=== PATIENT | female | born 1940 | race American Indian/Alaskan Native ===

== ENCOUNTER → 2021-09-21 12:18 | Outpatient (CLI) | payer MEDICARE, OTHER, SELFPAY ==
--- NOTE | 2021-09-21 | DI.RAD.S_ITS ---
PROCEDURE: XR HIP W PEL IF DONE LT 2V INDICATIONS: Pain in right hip TECHNIQUE: AP pelvis with lateral view(s) of the left hip(s). COMPARISON: None. FINDINGS: Bones: No fractures or dislocations. Pelvic ring appears intact. No suspicious bony lesions. Mild periarticular osteophyte formation at the bilateral hip joints. Soft tissues: The visualized bowel gas pattern is normal. No suspicious soft tissue calcifications. IMPRESSION: Hip osteoarthritis. No acute fracture. No osseous lesion. If symptoms and/or clinical suspicion for pathology persist, further assessment with repeat, or advanced imaging (e.g., CT, MRI, or bone scan) may be helpful for further assessment. Dictated by: Chon Miner M.D. on 09/21/2021 at 16:29 Approved by: Chon Miner M.D. on 09/21/2021 at 16:30
--- NOTE | 2021-09-21 | DI.RAD.S_ITS ---
PROCEDURE: XR LUMBAR SPINE 2-3V INDICATIONS: Pain in right hip TECHNIQUE: 3 views of the lumbar spine were acquired. COMPARISON: None. FINDINGS: Bones: 5 [id number] vertebrae are present. There is loss of normal lumbar lordosis. Mild grade 1 retrolisthesis of L1 on L2 and L2 on L3. Moderate diffuse leftward curvature of the mid/lower lumbar spine. Multilevel disc space narrowing and endplate osteophyte formation, as well as facet hypertrophy throughout the lumbar spine. No vertebral body compression fractures. No suspicious bony lesions. Soft tissues: Overlying bowel gas pattern is normal. No suspicious soft tissue calcifications. IMPRESSION: 1. Multilevel degenerative disc and facet disease. 2. No acute fracture. No osseous lesion. If symptoms and/or clinical suspicion for pathology persist, further assessment with repeat, or advanced imaging (e.g., CT, MRI, or bone scan) may be helpful for further assessment. Dictated by: Chon Miner M.D. on 09/21/2021 at 16:30 Approved by: Chon Miner M.D. on 09/21/2021 at 16:31
== END ==
PROVIDERS: PCP Family Medicine; Referring Provider Family Medicine; Visit Provider Family Medicine
DX: M25.551 Pain in right hip (principal); M16.11 Unilateral primary osteoarthritis, right hip; M51.36 Other intervertebral disc degeneration, lumbar region
CPT/HCPCS: 72100; 73502

== ENCOUNTER → 2022-04-15 14:39 | Outpatient (CLI) | payer MEDICARE, OTHER, SELFPAY ==
[2022-04-15 16:42] LABS: Add Manual Diff / Slide Review NO; Basophils Absolute Auto 0 /uL (0-100); Basophils Percent Auto 0.5 % (0-2); Eosinophils Absolute Auto 100 /uL (0-450); Hematocrit 36.6 % (36-46); Lymphocytes Absolute Auto 1800 /uL (1100-4500); Lymphocytes Percent Auto 29.5 % (25-40); Mean Corpuscular HGB Conc 32.8 % (30-36); Mean Corpuscular Hemoglobin 29.1 PG (26-34); Mean Corpuscular Volume 88.7 fL (80-100); Monocytes Absolute Auto 600 /uL (0-900); Monocytes Percent Auto 9.8 % (3-14); Neutrophils Absolute Auto 3500 /uL (1500-7000); Neutrophils Percent Auto 58.2 % (50-75); Platelet Count 228 X10^3/uL (150-400); Red Blood Cell Count 4.13 X10^6/uL (4.0-5.2); Red Cell Distribution Width 15.1 % (11.6-14.8)
[2022-04-15 16:45] LABS: INR 1.1 (0.9-1.3); Prothrombin Time 12.6 SECONDS (10.1-12.7)
[2022-04-15 16:48] LABS: PTT Partial Thromboplastin Tim 29 SECONDS (26-36)
[2022-04-15 16:56] LABS: Alanine Aminotransferase 13 IU/L (<35); Albumin 4.2 g/dL (3.5-5.0); Albumin Globulin Ratio 1.5 (1.0-2.8); Alkaline Phosphatase 65 U/L (38-126); Aspartate Aminotransferase 26 IU/L (14-36); BUN Creatinine Ratio 12.6 (6-22); Bilirubin Total 0.3 mg/dL (0.2-1.3); Blood Urea Nitrogen 15 mg/dL (7-17); Calcium 8.5 mg/dL (8.4-10.2); Carbon Dioxide 26 mmol/L (22-32); Chloride 103 mmol/L (98-107); Cholesterol 176 mg/dL (140-199); Estimated Glomerular Filt Rate 45 mL/min (>60); Globulin 2.8 g/dL (1.7-4.1); Glucose 78 mg/dL (80-110); HDL Cholesterol 63 mg/dL (40-60); HEMOLYSIS < 15 (0-50); LDL Cholesterol Calculated 87 mg/dL (<100); Potassium 4.4 mmol/L (3.4-5.1); Sodium 139 mmol/L (137-145); Triglycerides 130 mg/dL (35-150)
[2022-04-15 17:24] LABS: TSH w/ Reflex to FT4 1.41 uIU/mL (0.47-4.68)
== END ==
PROVIDERS: PCP Family Medicine; Referring Provider Family Medicine; Visit Provider Family Medicine
DX: E78.5 Hyperlipidemia, unspecified (principal); I10 Essential (primary) hypertension
CPT/HCPCS: 36415; 80053; 80061; 84443; 85025; 85610; 85730

== ENCOUNTER → 2022-07-25 15:09 | Outpatient (CLI) | payer MEDICARE, OTHER, SELFPAY ==
--- NOTE | 2022-07-25 | DI.US.S_ITS ---
PROCEDURE: US RENAL COMPLETE INDICATIONS: RENAL INSUFFICIENCY TECHNIQUE: Real-time scanning was performed of the kidneys and bladder, with image documentation. COMPARISON: None. FINDINGS: Kidneys: Kidneys are mildly atrophic in size. Right kidney measures 9.4 cm long; left kidney measures 9.7 cm long. Right renal cortical thickness is 0.7 cm; left renal cortical thickness is 0.7 cm. Renal cortical echotexture is normal. No hydronephrosis or nephrolithiasis. No suspicious solid mass lesions. Simple right renal cyst is present measuring 12 x 11 x 14 mm. Bladder: Pre-void bladder volume is 139 mL. Post-void residual is 36 mL. Pre-void images demonstrate no intraluminal masses or stones. On pre-void images, bilateral ureteral jets are noted with color Doppler interrogation. (Of note, ureteral jets may not be detectable in up to 25% of cases due to insufficient differences in specific gravity between ureteral and bladder urine). Miscellaneous: No free pelvic fluid. IMPRESSION: Mild bilateral renal atrophy without obstruction. Dictated by: Renay Rhodes M.D. on 07/25/2022 at 17:04 Approved by: Renay Rhodes M.D. on 07/25/2022 at 17:05
== END ==
PROVIDERS: PCP Family Medicine; Referring Provider Registered Nurse; Visit Provider Registered Nurse
DX: N28.9 Disorder of kidney and ureter, unspecified (principal); N26.1 Atrophy of kidney (terminal)
CPT/HCPCS: 76770

== ENCOUNTER → 2022-09-25 15:38 | Outpatient (CLI) | payer MEDICARE, OTHER, SELFPAY ==
--- NOTE | 2022-09-25 | DI.US.S_ITS ---
PROCEDURE: US PERIPH VENOUS LOW EXTREM LT INDICATIONS: LEG PAIN TECHNIQUE: Real-time imaging, as well as color and pulse Doppler interrogation, were performed of the lower extremity deep veins from the inguinal ligament to the popliteal fossa. COMPARISON: None. FINDINGS: The common femoral, femoral and popliteal veins are normally compressible, and free of intraluminal thrombus. Color and pulse Doppler demonstrate normal phasic intraluminal flow. There is normal augmentation response to distal compression maneuver. IMPRESSION: Negative for deep venous thrombosis. Dictated by: Nba Adrian M.D. on 09/25/2022 at 16:42 Approved by: Nba Adrian M.D. on 09/25/2022 at 16:42
== END ==
PROVIDERS: PCP Family Medicine; Referring Provider Family Medicine; Visit Provider Family Medicine
DX: M79.605 Pain in left leg (principal)
CPT/HCPCS: 93971

== ENCOUNTER 2022-12-01 08:05 | Emergency (ER) | payer MEDICARE, OTHER, SELFPAY ==
[2022-12-01] VITALS (16 sets, daily range): BP systolic 154–179; BP diastolic 75–99; PULSE 67–77; RESP 18–26; TEMP 36.8; O2SAT 96–98; BMI 27.5
--- NOTE | 2022-12-01 08:11 | DI.RAD.S_ITS ---
PROCEDURE: XR CHEST 1V INDICATIONS: fever, cough, chills TECHNIQUE: One view of the chest was acquired. COMPARISON: [facility], CR, XR CHEST 1 VIEW, 10/19/2021, 22:52. FINDINGS: Surgical changes and devices: Left chest pacemaker Lungs and pleura: Lung volumes are low. Mild interstitial and hazy bibasilar opacities. No large pleural effusion or pneumothorax. Mediastinum: Cardiac silhouette is enlarged. Bones and chest wall: No suspicious bony lesions. Overlying soft tissues appear unremarkable. IMPRESSION: Findings compatible with fluid overload/CHF. Viral or atypical infection can result in similar pulmonary opacities. Dictated by: Elan Pastor M.D. on 12/01/2022 at 8:23 Approved by: Elan Pastor M.D. on 12/01/2022 at 8:25
[2022-12-01] MEDS: LACTATED RINGERS 1,000 ML 1000 ML IV (08:25)
--- NOTE | 2022-12-01 08:35 | ED.GENADULT ---
HPI - General Adult General Chief complaint: Weakness Stated complaint: general weakness Time Seen by Provider: 12/01/22 08:10 Source: patient and EMS Mode of arrival: EMS History of Present Illness HPI narrative: 82-year-old female nonsmoker without any known chronic medical history presents by EMS for evaluation of feeling a bit under the weather with low-grade fever and generalized malaise for the past day or 2. She is had some nasal congestion and sneezing with the occasional cough. She denies sore throat. She is had no headache or blurred vision. She denies any chest pain, shortness of breath, nausea, vomiting or abdominal pain. She has had least 1 or 2 episodes of diarrhea. She denies dysuria, frequency or urgency. She denies exposure to other ill persons Related Data Previous Rx's Medication Instructions Recorded furosemide 40 mg tablet (Lasix) 40 mg PO DAILY #5 tabs 12/01/22 Allergies Allergy/AdvReac Type Severity Reaction Status Date / Time No Known Drug Allergies Allergy Verified 12/01/22 09:33 Review of Systems Review of Systems Narrative: GENERAL: See HPI HEENT: Denies sinus pain, ear pain, sore throat, difficulty swallowing, dizziness. RESPIRATORY: See HPI CARDIOVASCULAR: See HPI GASTROINTESTINAL: See HPI : See HPI MUSCULOSKELETAL: denies weakness, joint pain, or bony pain SKIN: Denies rash, skin lesions, or other NEUROLOGIC: Denies weakness, headache, numbness, change in speech, confusion, seizures, incoordination. PSYCHIATRIC: No concerning psychosocial issues. 12 point review of systems is negative except for those stated above Patient History Social History Smoking Status: Former smoker Smoking Status: Former smoker tobacco type: cigarettes alcohol intake frequency: a few times a week Substance Use Type: does not use Exam Narrative Exam Narrative: GENERAL: [82] year old patient appears stated age. Well-developed patient, in mild distress. HEAD: Atraumatic. Normocephalic. EYES: Pupils equal round and reactive. Extraocular motions intact. No scleral icterus. No injection or drainage. ENT: Nose without bleeding, purulent drainage. Throat without erythema, tonsillar hypertrophy or exudate. Airway patent. NECK: Trachea midline. Non tender CARDIOVASCULAR: Regular rate and rhythm without murmurs, gallops, or rubs. RESPIRATORY: No respiratory distress or increased work of breathing, no hypoxemia, there are faint crackles in bilateral bases, no wheezes or rhonchi GASTROINTESTINAL: Abdomen soft, non-tender, nondistended. EXTREMITIES: No edema or joint tenderness. BACK: Nontender without deformity or crepitance. No flank tenderness. NEURO: AOx3. SKIN: No rash or erythema of visible areas Initial Vital Signs Initial Vital Signs: Vital Signs Blood Pressure 161/99 H 12/01/22 08:10 Course Orders Ordered: ED Orders 12/01/22 08:11 Chest [XR chest 1V] Stat 12/01/22 08:15 Complete Blood Count AUTO DIFF Stat Comprehensive Metabolic Panel Stat Lactate (Lactic Acid) Stat NT-proBNP (BNP-Adult 18+) Stat Troponin & CK Cardiac Panel Stat 12/01/22 08:25 Covid-19 + FLU A/B + RSV - PCR Stat 12/01/22 08:26 EKG-12 Lead Stat 12/01/22 08:30 Blood Culture Stat Discontinued Medications Furosemide (Furosemide 40 Mg/4 Ml Vial) 40 mg IV NOW ONE Stop: 12/01/22 09:19 Last Admin: 12/01/22 09:34 Dose: 40 mg Documented By: SHAYAN Lactated Ringer's (Lactated Ringers) 1,000 mls @ 1,000 mls/hr IV BOLUS ONE Stop: 12/01/22 09:09 Last Infusion: 12/01/22 08:49 Dose: 0 mls/hr Documented By: Admin: 12/01/22 08:25 Dose: 1,000 mls/hr Documented By: ANGELICA Vital Signs Vital signs: Vital Signs - 8 hr 12/01/22 08:12 12/01/22 08:10 12/01/22 08:11 Temperature 98.2 F Pulse Rate 69 67 Respiratory Rate 18 Blood Pressure 179/93 H 161/99 H Pulse Oximetry 98 96 Oxygen Delivery Method Room Air 12/01/22 08:13 12/01/22 08:13 12/01/22 08:15 Temperature Pulse Rate 70 Respiratory Rate Blood Pressure 170/93 H 164/86 H Pulse Oximetry 97 Oxygen Delivery Method 12/01/22 08:15 12/01/22 08:30 12/01/22 08:30 Temperature Pulse Rate 70 73 Respiratory Rate 21 25 H Blood Pressure 154/78 H Pulse Oximetry 98 97 Oxygen Delivery Method 12/01/22 08:45 12/01/22 08:45 12/01/22 08:59 Temperature Pulse Rate 72 72 Respiratory Rate 26 H Blood Pressure 175/83 H Pulse Oximetry 96 97 Oxygen Delivery Method 12/01/22 09:00 12/01/22 09:00 12/01/22 09:05 Temperature Pulse Rate 72 72 Respiratory Rate 21 Blood Pressure 173/81 H Pulse Oximetry 97 98 Oxygen Delivery Method 12/01/22 09:15 12/01/22 09:15 12/01/22 09:30 Temperature Pulse Rate 73 Respiratory Rate 21 Blood Pressure 169/81 H 162/75 H Pulse Oximetry 98 Oxygen Delivery Method 12/01/22 09:30 12/01/22 09:45 12/01/22 09:45 Temperature Pulse Rate 71 75 Respiratory Rate 24 20 Blood Pressure 158/75 H Pulse Oximetry 98 97 Oxygen Delivery Method 12/01/22 09:58 12/01/22 09:58 12/01/22 10:00 Temperature Pulse Rate 70 Respiratory Rate Blood Pressure 177/82 H 164/78 H Pulse Oximetry 97 Oxygen Delivery Method 12/01/22 10:00 Temperature Pulse Rate 73 Respiratory Rate 24 Blood Pressure Pulse Oximetry 98 Oxygen Delivery Method Medical Decision Making Lab Data 12/01/22 08:15 12/01/22 08:15 Labs: Lab Results 12/01/22 12/01/22 12/01/22 Range/Units 08:15 08:15 08:15 WBC 5.9 (4.5-11.0) X10^3/uL RBC 4.16 (4.0-5.2) X10^6/uL Hgb 12.0 (12.0-16.0) g/dL Hct 36.7 (36-46) % MCV 88.3 (80-100) fL MCH 28.8 (26-34) PG MCHC 32.7 (30-36) % RDW 15.0 H (11.6-14.8) % Plt Count 218 (150-400) X10^3/uL Neut % (Auto) 63.3 (50-75) % Lymph % (Auto) 28.2 (25-40) % [place] % (Auto) 5.5 (3-14) % Eos % (Auto) 2.3 (2-4) % Baso % (Auto) 0.7 (0-2) % Neut # (Auto) 3800 (2791-4116) /uL Lymph # (Auto) 1700 (1423-7107) /uL [place] # (Auto) 300 (0-900) /uL Eos # (Auto) 100 (0-450) /uL Baso # (Auto) 0 (0-100) /uL Sodium 140 (137-145) mmol/L Potassium 3.7 (3.4-5.1) mmol/L Chloride 106 (98-107) mmol/L Carbon Dioxide 27 (22-32) mmol/L BUN 9 (7-17) mg/dL Creatinine 0.72 (0.52-1.04) mg/dL Estimated GFR > 60 (>60) mL/min BUN/Creatinine Ratio 12.5 (6-22) Glucose 99 (80-110) mg/dL Lactate 0.9 (0.7-2.1) mmol/L Calcium 9.1 (8.4-10.2) mg/dL Total Bilirubin 0.5 (0.2-1.3) mg/dL AST 29 (14-36) IU/L ALT 20 (<35) IU/L Alkaline Phosphatase 77 (38-126) U/L Total Creatine Kinase (30-135) U/L CK-MB (CK-2) CK-MB (CK-2) Rel Index Troponin I (0.01-0.034) ng/mL NT-Pro-B Natriuret Pep (<450) pg/mL Total Protein 7.0 (6.3-8.2) g/dL Albumin 4.1 (3.5-5.0) g/dL Globulin 2.9 (1.7-4.1) g/dL Albumin/Globulin Ratio 1.4 (1.0-2.8) SARS-CoV-2 (PCR) (Negative) Influenza A (RT-PCR) (NEGATIVE) Influenza B (RT-PCR) (NEGATIVE) RSV (PCR) (Negative) 12/01/22 12/01/22 12/01/22 Range/Units 08:15 08:15 08:25 WBC (4.5-11.0) X10^3/uL RBC (4.0-5.2) X10^6/uL Hgb (12.0-16.0) g/dL Hct (36-46) % MCV (80-100) fL MCH (26-34) PG MCHC (30-36) % RDW (11.6-14.8) % Plt Count (150-400) X10^3/uL Neut % (Auto) (50-75) % Lymph % (Auto) (25-40) % [place]cd[place] % (Auto) (3-14) % Eos % (Auto) (2-4) % Baso % (Auto) (0-2) % Neut # (Auto) (1666-0082) /uL Lymph # (Auto) (1842-2270) /uL Mcd[place]ough # (Auto) (0-900) /uL Eos # (Auto) (0-450) /uL Baso # (Auto) (0-100) /uL Sodium (137-145) mmol/L Potassium (3.4-5.1) mmol/L Chloride (98-107) mmol/L Carbon Dioxide (22-32) mmol/L BUN (7-17) mg/dL Creatinine (0.52-1.04) mg/dL Estimated GFR (>60) mL/min BUN/Creatinine Ratio (6-22) Glucose (80-110) mg/dL Lactate (0.7-2.1) mmol/L Calcium (8.4-10.2) mg/dL Total Bilirubin (0.2-1.3) mg/dL AST (14-36) IU/L ALT (<35) IU/L Alkaline Phosphatase (38-126) U/L Total Creatine Kinase 60 (30-135) U/L CK-MB (CK-2) TNP CK-MB (CK-2) Rel Index TNP Troponin I < 0.012 (0.01-0.034) ng/mL NT-Pro-B Natriuret Pep 2830 H (<450) pg/mL Total Protein (6.3-8.2) g/dL Albumin (3.5-5.0) g/dL Globulin (1.7-4.1) g/dL Albumin/Globulin Ratio (1.0-2.8) SARS-CoV-2 (PCR) Negative (Negative) Influenza A (RT-PCR) Flu a negative (NEGATIVE) Influenza B (RT-PCR) Flu b negative (NEGATIVE) RSV (PCR) Negative (Negative) Urine Dip Bedside Urine Glucose Negative Bedside Urine Bilirubin - Negative Bedside Urine Ketone - Negative Urine Specific [place] 1.010 Bedside Urine Occult Blood - Negative Bedside Urine pH 7.5 Bedside Urine Protein - Negative Bedside Urine Urobilinogen - Negative Bedside Urine Nitrite - Negative Bedside Urine Leukocytes - Negative Esterase Point of care testing: Urine Dip Bedside Urine Glucose Negative Bedside Urine Bilirubin - Negative Bedside Urine Ketone - Negative Urine Specific [place] 1.010 Bedside Urine Occult Blood - Negative Bedside Urine pH 7.5 Bedside Urine Protein - Negative Bedside Urine Urobilinogen - Negative Bedside Urine Nitrite - Negative Bedside Urine Leukocytes - Negative Esterase ECG Data Interpretation: [0826] EKG is normal sinus rhythm rate [ 73] and free of any signs of ischemia or ectopy. No ST segmental elevation or depression. No T wave inversions. First-degree AV block with CT interval 262 MDM Narrative Medical decision making narrative: CC: 82-year-old female feeling generally unwell and slightly weak for a day or 2 Complicating co-morbidities: Age Data collected from: Patient Medical records reviewed: Prior notes reviewed in our EMR Differential considered, but not limited to: Viral infection versus pneumonia versus UTI versus dehydration versus other Exam documented above, pertinent findings include: Alert and oriented, well hydrated, heart rate regular, lungs clear, nonlabored breathing, abdomen soft and nontender Lab Test results independently reviewed as above. Pertinent findings: Independently reviewed EKG as above Imaging studies independently reviewed: Chest x-ray without focal infiltrate Treatments: Lasix results in dilute urine Re-evaluations: patient well. NO work of breathing or hypoxemia Discussion: 82F with reassuring history and physical exam. She has stable vitals and no signicant lab or imaging abnormalities. Multiple diagnoses considered as noted above. Urine shows no UTI, CXR without pneumonia. Serum studies within normal with exception of elevated BNP. She has some crackles in the base of lungs but no hypoxemia or increased work of breathing. She has no CP. Viral panel is negative. No indication for further workup or hospitalization at this. Disposition: see below, along with detailed discharge instructions that have been reviewed with patient as well as indications for ED re-evaluation and additional outpatient follow up Discharge Plan Departure Patient Disposition: Home Clinical Impression: Weakness, Acute CHF Instructions: DI for Heart Failure Activity Restrictions/Additional Instructions: *You have been diagnosed with [generalized weakness and fatigue likely secondary to some mild fluid overload.] *What to do: *Please continue to take your regular medications as directed. [ x] New medication prescriptions sent to your pharmacy: [ ] [ ] New medication written as a paper prescription [ ] No new medications given *Please follow up with your primary care provider in 2-3 days, call for an appointment. Let them know you were seen in the Emergency Department and that we ask that you be seen in follow up. We will electronically transmit a record of today's note if your PCP is in our system *Return to Emergency Department if you should have any new, worsening or concerning symptoms, such as [fever greater than 101 F, shaking chills, worsening pain, persistent vomiting or other bothersome symptoms] Prescriptions: New furosemide [Lasix] 40 mg tablet 40 mg PO DAILY Qty: 5 0RF Referrals: Yulia Haney MD [Primary Care Provider] - Stand Alone Forms: Patient Portal/API
[2022-12-01 08:40] LABS: Add Manual Diff / Slide Review NO; Alanine Aminotransferase 20 IU/L (<35); Albumin 4.1 g/dL (3.5-5.0); Albumin Globulin Ratio 1.4 (1.0-2.8); Alkaline Phosphatase 77 U/L (38-126); Aspartate Aminotransferase 29 IU/L (14-36); BUN Creatinine Ratio 12.5 (6-22); Basophils Absolute Auto 0 /uL (0-100); Basophils Percent Auto 0.7 % (0-2); Bilirubin Total 0.5 mg/dL (0.2-1.3); Blood Urea Nitrogen 9 mg/dL (7-17); Calcium 9.1 mg/dL (8.4-10.2); Carbon Dioxide 27 mmol/L (22-32); Chloride 106 mmol/L (98-107); Eosinophils Absolute Auto 100 /uL (0-450); Eosinophils Percent Auto 2.3 % (2-4); Estimated Glomerular Filt Rate > 60 mL/min (>60); Globulin 2.9 g/dL (1.7-4.1); Glucose 99 mg/dL (80-110); HEMOLYSIS < 15 (0-50); Hematocrit 36.7 % (36-46); Lactate (Lactic Acid) 0.9 mmol/L (0.7-2.1); Lymphocytes Absolute Auto 1700 /uL (1100-4500); Lymphocytes Percent Auto 28.2 % (25-40); Mean Corpuscular HGB Conc 32.7 % (30-36); Mean Corpuscular Hemoglobin 28.8 PG (26-34); Mean Corpuscular Volume 88.3 fL (80-100); Monocytes Absolute Auto 300 /uL (0-900); Monocytes Percent Auto 5.5 % (3-14); Neutrophils Absolute Auto 3800 /uL (1500-7000); Neutrophils Percent Auto 63.3 % (50-75); Platelet Count 218 X10^3/uL (150-400); Potassium 3.7 mmol/L (3.4-5.1); Red Blood Cell Count 4.16 X10^6/uL (4.0-5.2); Sodium 140 mmol/L (137-145); White Blood Cell Count 5.9 X10^3/uL (4.5-11.0)
[2022-12-01 08:51] LABS: Creatine Kinase 60 U/L (30-135)
[2022-12-01 09:04] LABS: Troponin I < 0.012 ng/mL (0.01-0.034)
[2022-12-01 09:17] LABS: COVID-19 CEPHEID 4-PLEX PCR Negative (Negative); Influenza A - CEPHEID Flu A NEGATIVE (NEGATIVE); Influenza B - CEPHEID Flu B NEGATIVE (NEGATIVE); Respiratory Syncytial Virus Negative (Negative)
[2022-12-01] MEDS: FUROSEMIDE 40 MG/4 ML VIAL IV (09:34)
[2022-12-01 09:45] LABS: NT-proBNP (BNP-Adult 18+) 2830 pg/mL (<450)
== END 2022-12-01 10:36 | disposition home or self-care (01) ==
PROVIDERS: Emergency Provider Emergency Medicine; PCP Family Medicine
DX: R50.9 Fever, unspecified (principal); R53.1 Weakness; I50.9 Heart failure, unspecified
CPT/HCPCS: 0241U; 36415; 71045; 80053; 81003; 82550; 83605; 83880; 84484; 85025; 87040; 93005; 93010; 96374; 99284; J1940

== ENCOUNTER → 2023-05-15 09:57 | Outpatient (CLI) | payer MEDICARE, OTHER, SELFPAY | PROVIDERS: PCP Family Medicine; Referring Provider Family Medicine; Visit Provider Family Medicine | DX: R06.89 Other abnormalities of breathing (principal); Z87.891 Personal history of nicotine dependence | CPT/HCPCS: 94060; 94726; 94729 ==

== ENCOUNTER 2023-10-25 12:30 | Emergency (ER) | payer MEDICARE, OTHER, SELFPAY ==
[2023-10-25] VITALS (9 sets, daily range): BP systolic 126–150; BP diastolic 65–84; PULSE 60–66; RESP 16–21; TEMP 36.4; O2SAT 93–95; BMI 26.2
--- NOTE | 2023-10-25 12:45 | DI.RAD.S_ITS ---
PROCEDURE: XR CHEST 1V INDICATIONS: covid + eval for PNA TECHNIQUE: One view of the chest was acquired. COMPARISON: [facility], CR, XR CHEST 1V, 12/01/2022, 8:09. FINDINGS: Surgical changes and devices: Cardiac device in left chest wall with tip in the right atrium, and right ventricle. Atrial appendage closure device. Lungs and pleura: Low lung volumes. Hazy bilateral airspace opacities with interstitial prominence most prominent the retrocardiac region. No pleural effusions or pneumothorax. Mediastinum: Mediastinal contours appear normal. Cardiomegaly. Hiatal hernia Bones and chest wall: [place] right curvature of the thoracolumbar spine. No suspicious bony lesions. Overlying soft tissues appear unremarkable. IMPRESSION: Findings relatively unchanged from comparison dated 11/23/2022 likely represents chronic cardiomegaly with a small component of pulmonary edema. No new concerning consolidation. Hiatal hernia. Dictated by: George Holt M.D. on 10/25/2023 at 12:11 Approved by: George Holt M.D. on 10/25/2023 at 12:16
[2023-10-25 12:52] LABS: Add Manual Diff / Slide Review NO; Basophils Absolute Auto 0 /uL (0-100); Basophils Percent Auto 0.4 % (0-2); Eosinophils Absolute Auto 100 /uL (0-450); Eosinophils Percent Auto 0.9 % (2-4); Hematocrit 41.4 % (36-46); Hemoglobin 13.1 g/dL (12.0-16.0); Lymphocytes Absolute Auto 1200 /uL (1100-4500); Lymphocytes Percent Auto 16.4 % (25-40); Mean Corpuscular HGB Conc 31.8 % (30-36); Mean Corpuscular Hemoglobin 28.6 PG (26-34); Mean Corpuscular Volume 89.9 fL (80-100); Monocytes Absolute Auto 400 /uL (0-900); Monocytes Percent Auto 4.7 % (3-14); Neutrophils Absolute Auto 5900 /uL (1500-7000); Neutrophils Percent Auto 77.6 % (50-75); Platelet Count 247 X10^3/uL (150-400); White Blood Cell Count 7.6 X10^3/uL (4.5-11.0)
[2023-10-25] MEDS: SODIUM CHLORIDE 0.9% 1,000 ML 1000 ML IV (13:13)
[2023-10-25 13:14] LABS: Alanine Aminotransferase 18 IU/L (<35); Albumin 4.7 g/dL (3.5-5.0); Albumin Globulin Ratio 1.5 (1.0-2.8); Alkaline Phosphatase 79 U/L (38-126); Aspartate Aminotransferase 33 IU/L (14-36); BUN Creatinine Ratio 39.3 (6-22); Bilirubin Total 0.5 mg/dL (0.2-1.3); Blood Urea Nitrogen 35 mg/dL (7-17); Calcium 9.5 mg/dL (8.4-10.2); Carbon Dioxide 31 mmol/L (22-32); Chloride 108 mmol/L (98-107); Estimated Glomerular Filt Rate > 60 mL/min (>60); Globulin 3.1 g/dL (1.7-4.1); Glucose 96 mg/dL (80-110); HEMOLYSIS < 15 (0-50); Lipase 167 U/L (23-300); Potassium 4.7 mmol/L (3.4-5.1); Sodium 142 mmol/L (137-145); Total Protein 7.8 g/dL (6.3-8.2)
--- NOTE | 2023-10-25 13:20 | ED_ITS ---
HPI - General Adult General Chief complaint: Weakness Stated complaint: +covid Time Seen by Provider: 10/25/23 12:36 Source: patient and EMS Mode of arrival: EMS History of Present Illness HPI narrative: Patient is an 83-year-old female. Approximately 1 week ago started to have symptoms consistent with COVID. She was tested the next day and was positive. She states that she has been breathing okay. No chest pain. She does have a decreased appetite. Has had decreased oral intake because he just has not felt very well. No nausea but she states with the past couple days she is felt like everything that she eats ?comes back up? she has not vomiting but seems to be regurgitating the food. She was able to hold down liquids. She stated that she contacted her doctor today who advised that she come in because she has been losing weight over the past week. Related Data Previous Rx's Medication Instructions Recorded furosemide 40 mg tablet (Lasix) 40 mg PO DAILY #5 tabs 12/01/22 esomeprazole magnesium 20 mg 20 mg PO DAILY 14 days #14 caps 10/25/23 capsule,delayed release (Nexium) ondansetron 4 mg disintegrating 4 mg PO Q6H PRN nausea and 10/25/23 tablet vomiting #14 tabs Allergies Allergy/AdvReac Type Severity Reaction Status Date / Time No Known Drug Allergies Allergy Verified 12/01/22 09:33 Review of Systems Review of Systems Narrative: See HPI Patient History Social History Smoking Status: Former smoker Smoking Status: Former smoker tobacco type: cigarettes alcohol intake frequency: a few times a week Substance Use Type: does not use Exam Initial Vital Signs Initial Vital Signs: Vital Signs Temperature 97.5 F L 10/25/23 12:37 Pulse Rate 62 10/25/23 12:37 Respiratory Rate 16 10/25/23 12:37 Pulse Oximetry 95 10/25/23 12:37 Oxygen Delivery Method Room Air 10/25/23 12:37 Const General: cooperative, comfortable and No ill appearing HENOK Head: normal to inspection and normocephalic Resp Effort & Inspection: normal respiratory effort Auscultation: clear to auscultation bilaterally Cardio Rate: regular rate Rhythm: regular rhythm GI Inspection: normal to inspection and non-distended Palpation: soft, No firm, No guarding and No tender Neuro General: patient alert, patient awake, patient oriented x3 and moves all extremities Extrem General: No edema Course Orders Ordered: ED Orders 10/25/23 12:45 XR chest 1V Stat Complete Blood Count AUTO DIFF Stat Comprehensive Metabolic Panel Stat Lipase Stat 10/25/23 13:20 EKG-12 Lead Stat Discontinued Medications Sodium Chloride (Normal Saline 0.9%) 1,000 mls @ 1,000 mls/hr IV BOLUS ONE Stop: 10/25/23 13:44 Last Infusion: 10/25/23 14:53 Dose: Infused Documented By: Admin: 10/25/23 13:13 Dose: 1,000 mls/hr Documented By: BRITTANY Pantoprazole Sodium (Pantoprazole 40 Mg Vial) 40 mg IV NOW ONE Stop: 10/25/23 13:21 Last Admin: 10/25/23 13:27 Dose: 40 mg Documented By: BRITTANY Vital Signs Vital signs: Vital Signs - 8 hr 10/25/23 12:37 10/25/23 12:38 10/25/23 13:00 Temperature 97.5 F L Pulse Rate 62 63 60 Respiratory Rate 16 16 17 Blood Pressure Pulse Oximetry 95 93 93 Oxygen Delivery Method Room Air Room Air 10/25/23 13:16 10/25/23 13:16 Temperature Pulse Rate 62 Respiratory Rate 21 Blood Pressure 141/68 H Pulse Oximetry 95 Oxygen Delivery Method Medical Decision Making Lab Data Lab results reviewed: Yes I reviewed the patient's lab results. 10/25/23 12:45 10/25/23 12:45 Labs: Lab Results 10/25/23 Range/Units 12:45 WBC 7.6 (4.5-11.0) X10^3/uL RBC 4.60 (4.0-5.2) X10^6/uL Hgb 13.1 (12.0-16.0) g/dL Hct 41.4 (36-46) % MCV 89.9 (80-100) fL MCH 28.6 (26-34) PG MCHC 31.8 (30-36) % RDW 17.0 H (11.6-14.8) % Plt Count 247 (150-400) X10^3/uL Neut % (Auto) 77.6 H (50-75) % Lymph % (Auto) 16.4 L (25-40) % [place] % (Auto) 4.7 (3-14) % Eos % (Auto) 0.9 L (2-4) % Baso % (Auto) 0.4 (0-2) % Neut # (Auto) 5900 (0353-6225) /uL Lymph # (Auto) 1200 (1206-7176) /uL [place] # (Auto) 400 (0-900) /uL Eos # (Auto) 100 (0-450) /uL Baso # (Auto) 0 (0-100) /uL Sodium 142 (137-145) mmol/L Potassium 4.7 (3.4-5.1) mmol/L Chloride 108 H (98-107) mmol/L Carbon Dioxide 31 (22-32) mmol/L BUN 35 H (7-17) mg/dL Creatinine 0.89 (0.52-1.04) mg/dL Estimated GFR > 60 (>60) mL/min BUN/Creatinine Ratio 39.3 H (6-22) Glucose 96 (80-110) mg/dL Calcium 9.5 (8.4-10.2) mg/dL Total Bilirubin 0.5 (0.2-1.3) mg/dL AST 33 (14-36) IU/L ALT 18 (<35) IU/L Alkaline Phosphatase 79 (38-126) U/L Total Protein 7.8 (6.3-8.2) g/dL Albumin 4.7 (3.5-5.0) g/dL Globulin 3.1 (1.7-4.1) g/dL Albumin/Globulin Ratio 1.5 (1.0-2.8) Lipase 167 (23-300) U/L Imaging Data Chest x-ray: Radiologist's Impression: PROCEDURE: XR CHEST 1V INDICATIONS: covid + eval for PNA TECHNIQUE: One view of the chest was acquired. COMPARISON: [facility], , XR CHEST 1V, 12/01/2022, 8:09. FINDINGS: Surgical changes and devices: Cardiac device in left chest wall with tip in the right atrium, and right ventricle. Atrial appendage closure device. Lungs and pleura: Low lung volumes. Hazy bilateral airspace opacities with interstitial prominence most prominent the retrocardiac region. No pleural effusions or pneumothorax. Mediastinum: Mediastinal contours appear normal. Cardiomegaly. Hiatal hernia Bones and chest wall: [place] right curvature of the thoracolumbar spine. No suspicious bony lesions. Overlying soft tissues appear unremarkable. IMPRESSION: Findings relatively unchanged from comparison dated 11/23/2022 likely represents chronic cardiomegaly with a small component of pulmonary edema. No new concerning consolidation. Hiatal hernia. ECG Data Attestation: I personally reviewed and interpreted this ECG as follows: Interpretation: Sinus rhythm Ventricular rate is 61 First-degree AV block UT interval 254 milliseconds Normal axis Normal QRS Nonspecific ST T wave changes MDM Narrative Medical decision making narrative: Patient is not hypoxic. EKG is unremarkable. Afebrile. Not tachypneic. Chest x-ray is unremarkable. Patient presents today because she was having regurgitation of her food and epigastric discomfort. She has not having chest pain. She was able to tolerate oral intake. Did feel somewhat better after Protonix. No indication for admission to the hospital. Will discharge patient home with a prescription for Zofran and also a proton pump inhibitor. She was given return precautions. She expressed understanding and agreement. Discharge Plan Departure Patient Disposition: Home Clinical Impression: Epigastric abdominal pain Instructions: DI for Epigastric Pain Activity Restrictions/Additional Instructions: I do recommend a bland diet. You may need to eat soft foods for the next couple days. Use the Zofran/ondansetron as needed for any nausea. The Nexium/as omeprazole should be taken on a daily basis for the next 2 weeks. Return to the emergency department for new symptoms. Prescriptions: New ondansetron 4 mg tablet,disintegrating 4 mg PO Q6H PRN (Reason: nausea and vomiting) Qty: 14 0RF esomeprazole magnesium [Nexium] 20 mg capsule,delayed release(DR/EC) 20 mg PO DAILY 14 Days Qty: 14 0RF No Action furosemide [Lasix] 40 mg tablet 40 mg PO DAILY Qty: 5 0RF Referrals: Yulia Haney MD [Primary Care Provider] - Stand Alone Forms: Patient Portal/API
[2023-10-25] MEDS: PANTOPRAZOLE 40 MG VIAL IV (13:27)
== END 2023-10-25 15:43 | disposition home or self-care (01) ==
PROVIDERS: Emergency Provider Emergency Medicine; PCP Family Medicine
DX: R10.13 Epigastric pain (principal); I44.0 Atrioventricular block, first degree
CPT/HCPCS: 36415; 71045; 80053; 83690; 85025; 93005; 96361; 96374; 99284; C9113

== ENCOUNTER → 2024-04-27 09:51 | Outpatient (CLI) | payer MEDICARE, OTHER, SELFPAY ==
--- NOTE | 2024-04-27 09:54 | DI.RAD.S_ITS ---
PROCEDURE: XR HIP W PEL IF DONE LT 2V INDICATIONS: HIP PAIN TECHNIQUE: AP pelvis with lateral view(s) of the left hip(s). COMPARISON: [facility], , XR HIP W PEL IF DONE LT 2V, 09/21/2021, 12:39. FINDINGS: Diffuse osseous demineralization. No acute fracture or dislocation. No pelvic ring disruption. Unchanged mild bilateral hip, moderate left sacroiliac joint, mild right sacroiliac joint, mild pubic symphysis, and mild lower lumbar osteoarthritis. Pelvic phleboliths. IMPRESSION: Mild left hip osteoarthritis. Dictated by: Toni Shelley M.D. on 04/28/2024 at 9:55 Approved by: Toni Shelley M.D. on 04/28/2024 at 9:57
--- NOTE | 2024-04-27 09:56 | DI.US.S_ITS ---
PROCEDURE: US RETRO PERITONEAL LIMITED INDICATIONS: ABDOMINAL AORTIC ANERUYSM FOLLOW UP TECHNIQUE: Real time scanning was performed of the aorta and iliac arteries, with image documentation. COMPARISON: None. FINDINGS: Aorta: Proximal aortic diameter measures 3.2 cm. Mid-aorta measures 2.4 cm. Distal aortic diameter is 2.0 cm. Iliac arteries: Right common iliac artery measures 1.1 cm. Left common iliac artery measures 1.2 cm. Cholelithiasis without evidence of acute cholecystitis seen incidentally. IMPRESSION: Proximal aortic diameter of 3.2 cm, which is mildly dilated. Three year follow-up is recommended per consensus guidelines. Correlation with prior report (not available at time of dictation) is also recommended to ensure no excessive growth. Dictated by: Carlos Clifton M.D. on 04/28/2024 at 17:59 Approved by: Carlos Clifton M.D. on 04/28/2024 at 18:00
== END ==
LOC: US 09:53
PROVIDERS: PCP Family Medicine; Referring Provider Family Medicine; Visit Provider Family Medicine
DX: I71.40 Abdominal aortic aneurysm, without rupture, unspecified (principal); M16.12 Unilateral primary osteoarthritis, left hip; K80.20 Calculus of gallbladder without cholecystitis without obstruction; M25.552 Pain in left hip
CPT/HCPCS: 73502; 76775

== ENCOUNTER → 2024-08-19 12:01 | Outpatient (CLI) | payer MEDICARE, OTHER, SELFPAY ==
--- NOTE | 2024-08-19 12:05 | DI.RAD.S_ITS ---
PROCEDURE: XR CHEST 2V INDICATIONS: bilateral rales TECHNIQUE: 2 views of the chest were acquired. COMPARISON: [facility], CR, XR CHEST 1V, 10/25/2023, 12:46. FINDINGS: Heart, mediastinum and pulmonary vasculature: Moderate cardiomegaly is unchanged. Pacemaker leads in stable satisfactory position. Moderate hiatal hernia seen as before. Pulmonary vasculature normal Lungs: Clear Pleural spaces: Normal-no effusions or pneumothorax. Bones and soft tissues: Normal IMPRESSION: No acute disease. Dictated by: Kip Lopez M.D. on 08/20/2024 at 9:58 Approved by: Kip Lopez M.D. on 08/20/2024 at 10:01
== END ==
PROVIDERS: PCP Family Medicine; Referring Provider Family Medicine; Visit Provider Family Medicine
DX: K44.9 Diaphragmatic hernia without obstruction or gangrene (principal); R09.89 Other specified symptoms and signs involving the circulatory and respiratory systems; I51.7 Cardiomegaly; Z95.0 Presence of cardiac pacemaker
CPT/HCPCS: 71046

== ENCOUNTER → 2024-09-14 10:27 | Outpatient (CLI) | payer MEDICARE, OTHER, SELFPAY ==
--- NOTE | 2024-09-14 10:29 | DI.CT.S_ITS ---
PROCEDURE: CT CHEST HIGH RESOLUTION INDICATIONS: IDIOPATHIC PULMONARY FIBROSIS TECHNIQUE: Noncontrast 1.0 and 5.0 mm thick contiguous axial sections from the pulmonary apex to the posterior costophrenic angles, with 7 mm thick coronal and sagittal MIP reformats. 1 mm thick dynamic expiratory images acquired through the upper, mid, and lower lungs. 1.0 mm thick axial sections acquired from the juan to the posterior costophrenic angles in the prone end-inspiration position. For radiation dose reduction, the following was used: automated exposure control, adjustment of mA and/or kV according to patient size. COMPARISON: [facility], CT, CT ABDOMEN PELVIS WITH CONTRAST, 10/20/2021, 17:21. [facility], CR, XR CHEST 2V, 08/19/2024, 12:12. [facility], CT, CT CHEST WITHOUT CONTRAST, 11/27/2023, 12:29. FINDINGS: Image quality: Diagnostic. Lower Neck: No enlarged lymph nodes. Thyroid: No thyroid nodules which require sonographic follow up, per consensus guidelines. Axillae: No enlarged lymph nodes. Chest Wall: Unremarkable. Bones: Contour abnormality of the sternum is unchanged. No compression fracture. No suspicious osseous lesion. Lungs and Pleura: No pneumothorax or pleural effusions. Small pulmonary cysts. Moderate peripheral reticular thickening, unchanged. Minimal to mild bronchiectasis. The central airways are clear. The previously seen patchy ground-glass airspace opacities on CT 11/27/2023 are resolved. No mass or significant pulmonary nodules demonstrated. No significant air trapping. Heart: Left pacemaker with right atrial and right ventricular leads. Intra atrial device. Heart size is enlarged. No pericardial effusion. Thoracic Vessels: Right pulmonary artery measures 3.5 cm, (3/43). Left pulmonary artery measures 3.2 cm, (3/37). Findings suggest pulmonary arterial hypertension. Mediastinum and Desiree: Small mediastinal lymph nodes are unchanged. Esophagus: Gastric sleeve. Tiny hiatal hernia. There is fluid near the distal esophagus. Upper Abdomen: Small hypodensity within the liver at the dome is unchanged. Small hypodensity at the inferior right liver is unchanged. Most consistent with a benign cysts. IMPRESSION: 1. Similar moderate peripheral reticular thickening and mild bronchiectasis. Probable UIP pattern interstitial lung disease. 2. No acute airspace opacity. No pleural effusion. 3. Prominent pulmonary arteries suggesting pulmonary arterial hypertension. Cardiomegaly. 4. Trace fluid near the distal esophagus. Small hiatal hernia. Gastric sleeve. Dictated by: Ankur Bah M.D. on 09/14/2024 at 12:56 Approved by: Ankur Bah M.D. on 09/14/2024 at 13:12
== END ==
PROVIDERS: PCP Family Medicine; Referring Provider Family Medicine; Visit Provider Family Medicine
DX: J84.112 Idiopathic pulmonary fibrosis (principal); J47.9 Bronchiectasis, uncomplicated; J98.4 Other disorders of lung; I51.7 Cardiomegaly; Z95.0 Presence of cardiac pacemaker
CPT/HCPCS: 71250

== ENCOUNTER → 2024-09-22 13:41 | Outpatient (CLI) | payer MEDICARE, OTHER, SELFPAY | PROVIDERS: PCP Family Medicine; Referring Provider Family Medicine; Visit Provider Family Medicine | DX: R00.2 Palpitations (principal); I48.91 Unspecified atrial fibrillation | CPT/HCPCS: 93246; 93248 ==

== ENCOUNTER → 2024-10-19 10:57 | Outpatient (CLI) | payer MEDICARE, OTHER, SELFPAY ==
[2024-10-19 12:46] LABS: Rheumatoid Factor < 8.6 IU/mL (<12.0)
[2024-10-20 20:39] LABS: Scleroderma 70 Antibody < 0.2 AI (0.0-0.9)
== END ==
PROVIDERS: PCP Family Medicine; Referring Provider Internal Medicine Critical Care Medicine; Visit Provider Internal Medicine Critical Care Medicine
DX: J84.9 Interstitial pulmonary disease, unspecified (principal); I27.20 Pulmonary hypertension, unspecified
CPT/HCPCS: 36415; 86038; 86235; 86430

== ENCOUNTER → 2024-11-02 08:13 | Outpatient (CLI) | payer MEDICARE, OTHER, SELFPAY | PROVIDERS: PCP Family Medicine; Referring Provider Internal Medicine Critical Care Medicine; Visit Provider Internal Medicine Critical Care Medicine | DX: J84.9 Interstitial pulmonary disease, unspecified (principal); Z87.891 Personal history of nicotine dependence; R94.2 Abnormal results of pulmonary function studies | CPT/HCPCS: 94060; 94726; 94729 ==

== ENCOUNTER → 2024-11-08 14:19 | Outpatient (CLI) | payer MEDICARE, OTHER, SELFPAY ==
--- NOTE | 2024-11-08 14:20 | DI.ECHO.S_ITS ---
[facility] : : [id number] : [address] : : [id number] : : Phone: [phone] Echocardiogram Report + + :Name: YANET MILLS Study Date: 11/08/2024 Height: 64 in : :[facility] ReadingLocation: Weight: 156 lb : : Gender: Female BSA: 1.8 m2 : :: 1940 Age: 84 yrs BP: 130/80 mmHg: :Reason For Study: PULMONARY ARTERY HYPERTENSION : :Ordering Physician: RADHA, : :SANTOSH Performed By: Amarilis Tyler : :Referring: SANTOSH GARCIA : + + Interpretation Summary The ejection fraction is estimated to be 50-55%. Diastolic function could not be accurately assessed due to paced rhythm. The right ventricle is mildly dilated. The right ventricular systolic function is normal. There is severe biatrial enlargement. There is moderate mitral regurgitation. There is mild aortic regurgitation. There is moderate tricuspid regurgitation. The right ventricular systolic pressure is estimated to be at least 47 mmHg based on an estimated right atrial pressure of 8 mm Hg. The ascending aorta is mildly enlarged. Procedure: A two-dimensional transthoracic echocardiogram with color flow and Doppler was performed. The study quality was technically adequate. Comparison is made with the echocardiogram of 11/28/2023. The patient has a paced rhythm. The heart rate ranged between 78-85 bpm during the study. Left Ventricle: The left ventricle is normal in size and wall thickness. The ejection fraction is estimated to be 50-55%. Diastolic function could not be accurately assessed due to paced rhythm. Right Ventricle: There is a pacemaker lead in the right ventricle. The right ventricle is mildly dilated. The right ventricular systolic function is normal. Atria: There is severe biatrial enlargement. There is a catheter/pacemaker lead seen in the right atrium. There is no Doppler evidence for an interatrial shunt. Mitral Valve: There is mild mitral annular calcification. The mitral valve leaflets appear to open well. There is moderate mitral regurgitation. Aortic Valve: The aortic valve is trileaflet. The aortic valve is mildly calcified. There is no aortic valve stenosis. There is mild aortic regurgitation. Tricuspid Valve: Tricuspid leaflets are thickened. There is moderate tricuspid regurgitation. The right ventricular systolic pressure is estimated to be at least 47 mmHg based on an estimated right atrial pressure of 8 mm Hg. Pulmonic Valve: The pulmonic valve is not well visualized. There is mild pulmonic regurgitation. Great Vessels: The aortic root is mildly dilated. The ascending aorta is mildly enlarged. The IVC is of normal diameter and collapses greater than 50% with a sniff. This suggests a low right atrial pressure of 3 mm Hg. Pericardium/ Pleura There is no pericardial effusion. There is no pleural effusion. MMode/2D Measurements & Calculations LVIDd: 5.2 cm LVOT diam: 2.0 cm LVIDs: 4.0 cm Ao root diam: 4.0 cm FS: 23.5 % asc Aorta Diam: 3.8 cm IVSd: 0.76 cm Ao Arch Diam (Prox Trans): 3.5 cm LVPWd: 0.86 cm LV billings. diameter/BSA (cm/m^2): 2.9 LV sys. diameter/BSA (cm/m^2): 2.3 LA A2 area: 38.8 cm2 RA long axis: 7.8 cm LA A4 area: 36.0 cm2 RA area: 30.6 cm2 LA length (vol): 7.8 cm RA vol: 101.8 ml LA vol: 151.4 ml RA : 57.8 ml/m2 LA vol index: 86.0 ml/m2 IVC diam: 1.8 cm RVD1 (basal): 4.2 cm RVD2 (mid): 3.2 cm TAPSE: 1.5 cm Doppler Measurements & Calculations Ao V2 max: 160.4 cm/sec LVOT Max Black: 101.5 cm/sec Ao V2 mean: 107.0 cm/sec LV V1 max P.1 mmHg Ao max P.3 mmHg LV V1 VTI: 16.6 cm Ao mean P.2 mmHg TANGELA(I,D): 2.3 cm2 Ao V2 VTI: 23.4 cm TANGELA(V,D): 2.0 cm2 sev ratio: 0.71 TANGELA indexed to BSA (cm^2/m^2): 1.3 AI P1/2t: 624.9 msec AI dec slope: 225.9 cm/sec2 MV E max black: 106.5 cm/sec TR max black: 311.8 cm/sec MV A max black: 27.0 cm/sec TR max P.9 mmHg MV E/A: 3.9 PA pr(Accel): 37.0 mmHg Med Peak E' Black: 7.9 cm/sec E/E' med: 13.5 Lat Peak E' Black: 15.1 cm/sec E/E' lat: 7.0 E/e' average: 10.3 MV dec time: 0.16 sec MR ERO: 0.17 cm2 MR PISA: 3.0 cm2 SV(LVOT): 53.8 ml MR flow rate: 98.2 cm3/sec MR PISA radius: 0.69 cm Reading Physician:07:36 AM
== END ==
PROVIDERS: PCP Family Medicine; Referring Provider Family Medicine; Visit Provider Family Medicine
DX: I08.3 Combined rheumatic disorders of mitral, aortic and tricuspid valves (principal); I27.20 Pulmonary hypertension, unspecified; I77.89 Other specified disorders of arteries and arterioles; I77.810 Thoracic aortic ectasia
CPT/HCPCS: 93306

== ENCOUNTER → 2024-11-16 10:07 | Outpatient (CLI) | payer MEDICARE, OTHER, SELFPAY ==
--- NOTE | 2024-11-16 10:08 | DI.MG.S_ITS ---
MM screening mammo BI: 11/16/2024. BI-RADS: 2 CLINICAL: 84-year old female for bilateral screening mammogram. No Tyrer-Cuzick risk score calculation due to patient's age being over 85 years old. Current reported family history of breast cancer: mother. The patient had a prior left breast biopsy. PRIOR EXAMS 06/16/2023, (osf)10/06/20, 10/27/18, 09/19/17, 10/02/16, 10/02/2016. MAMMOGRAPHY TECHNIQUE: 2D and 3D (tomosynthesis) digital mammographic views obtained, with additional images as needed for full coverage. Current study was also evaluated with a Computer Aided Detection (CAD) system. DENSITY B. There are scattered areas of fibroglandular density. MAMMOGRAPHY FINDINGS Bilateral: Typically-benign vascular calcifications noted. IMPRESSION: * No evidence of malignancy with benign findings. RECOMMENDATIONS Bilateral * Annual screening mammography. OVERALL ASSESSMENT CATEGORY BI-RADS-2: Benign. The [employer] recommends annual screening mammography beginning at age 40 for women with average risk of breast cancer. ELECTRONICALLY SIGNED: James Perez M.D. on 11/16/2024 at 11:54:06 AM PT Interpreting Station ID: [id number]
== END ==
LOC: MAMMO 10:08
PROVIDERS: PCP Family Medicine; Referring Provider Family Medicine; Visit Provider Family Medicine
DX: Z12.31 Encounter for screening mammogram for malignant neoplasm of breast (principal); R53.83 Other fatigue; R92.1 Mammographic calcification found on diagnostic imaging of breast; Z80.3 Family history of malignant neoplasm of breast
CPT/HCPCS: 77063; 77067